=== PATIENT | male | born 1970 | race African-American/Black ===

== ENCOUNTER 2016-07-01 04:59 | Emergency (ER) | payer MEDICAID ==
[~2016-07-01] VITALS: Ht 195.6 cm; Wt 81.8 kg
[2016-07-01] MEDS ORDERED: KETOROLAC 60MG/2ML VIAL IM ONE (06:30)
[2016-07-01 07:38] LABS: BASOPHILS % 1.1 % (0.0-2.0); EOSINOPHILS % 2.2 % (0.0-5.0); HEMATOCRIT. 40.5 % (42.0-52.0); HEMOGLOBIN. 13.7 g/dL (14.0-18.0); LYMPHOCYTES % 27.5 % (20.0-50.0); MEAN CORPUSCULAR HEMOGLOBIN 31.4 pg (28.0-32.0); MEAN CORPUSCULAR HGB CONC 33.7 g/dL (31.0-37.0); MEAN PLATELET VOLUME 6.9 fl (7.4-10.4); MONOCYTES % 11.9 % (2.0-8.0); NEUTROPHILS % 57.3 % (40.0-76.0); PLATELET 193 x1000/uL (130-400); RED BLOOD CELL COUNT 4.35 mill/uL (4.7-6.1); RED CELL DISTRIBUTION WIDTH 13.4 % (11.6-14.6); WHITE BLOOD COUNT 10.4 x1000/uL (4.5-11.0)
[2016-07-01 07:45] LABS: INR 1.1; PROTHROMBIN TIME 10.9 sec
[2016-07-01 07:47] LABS: ALBUMIN 3.3 g/dL (3.4-5.0); ANION GAP 10; CARBON DIOXIDE 28 mEq/L (21-32); CHLORIDE 107 mEq/L (98-107); INDEX HEMOLYSI 1 (1-3); INDEX ICTERIC 1 (1-4); INDEX LIPEMIC 1 (1-3); LIPASE 146 IU/L (73-393); UREA NITROGEN BLOOD 19 mg/dL (7-21)
[2016-07-01 07:50] LABS: ALANINE AMINOTRANSFERASE 12 IU/L (13-61); eGFR > 60 mL/min (>60)
[2016-07-01 09:34] VITALS: BP 99/63
[2016-07-01 09:43] LABS: CLARITY URINE CLOUDY (CLEAR); COLOR URINE YELLOW (YELLOW); GLUCOSE URINE NEGATIVE (NEGATIVE); KETONES URINE NEGATIVE (NEGATIVE); LEUKOCYTE ESTERASE URINE 2+ (NEGATIVE); NITRITE URINE POSITIVE (NEGATIVE); OCCULT BLOOD URINE 1+ (NEGATIVE); PROTEIN URINE NEGATIVE (NEGATIVE); SPECIFIC GRAVITY URINE 1.026 (1.005-1.030)
[2016-07-01 09:58] LABS: *AMPHETAMINES SCREEN URINE NEGATIVE (NEGATIVE); *BARBITURATES SCREEN URINE NEGATIVE (NEGATIVE); *BENZODIAZEPINES SCREEN URINE NEGATIVE (NEGATIVE); *COCAINE SCREEN URINE NEGATIVE (NEGATIVE); AMORPHOUS SEDIMENT URINE 1+ /lpf; BACTERIA URINE 3+; CANNABINOID URINE SCREEN PRESUMTIVE POSITIVE (NEGATIVE); ECSTASY MDMA SCREEN URINE NEGATIVE (NEGATIVE); METHADONE URINE SCREEN NEGATIVE (NEGATIVE); OPIATES URINE SCREEN NEGATIVE (NEGATIVE); PHENCYCLIDINE URINE SCREEN NEGATIVE (NEGATIVE); WBC URINE 15-25 /hpf (0-2)
== END 2016-07-01 10:20 | disposition home or self-care (01) ==
LOC: ER 05:05
DX: M79.602 Pain in left arm (principal); N39.0 Urinary tract infection, site not specified; F17.200 Nicotine dependence, unspecified, uncomplicated
CPT/HCPCS: 36415; 71010; 80053; 80305; 81001; 83690; 85025; 85610; 93005; 96372; 99285; G0482; J1885

== ENCOUNTER 2016-08-08 06:22 | Emergency (ER) | payer MEDICAID ==
[~2016-08-08] VITALS: Ht 195.6 cm; Wt 89.0 kg
[2016-08-08 06:39] VITALS: BP 113/66
== END 2016-08-08 09:01 | disposition left against medical advice (07) ==
LOC: ER 08:44
DX: M79.602 Pain in left arm (principal); Z53.21 Procedure and treatment not carried out due to patient leaving prior to being seen by health care provider

== ENCOUNTER 2016-08-08 09:30 | Emergency (ER) | payer MEDICAID ==
[~2016-08-08] VITALS: Ht 195.6 cm; Wt 89.0 kg
[2016-08-08 10:36] LABS: CLARITY URINE CLOUDY (CLEAR); COLOR URINE YELLOW (YELLOW); GLUCOSE URINE NEGATIVE (NEGATIVE); KETONES URINE NEGATIVE (NEGATIVE); LEUKOCYTE ESTERASE URINE 2+ (NEGATIVE); NITRITE URINE POSITIVE (NEGATIVE); OCCULT BLOOD URINE TRACE (NEGATIVE); PROTEIN URINE NEGATIVE (NEGATIVE); SPECIFIC GRAVITY URINE 1.022 (1.005-1.030); UROBILINOGEN URINE 0.2 E.U./dL (0.2-1.0)
[2016-08-08 11:00] LABS: BASOPHILS % 0.7 % (0.0-2.0); EOSINOPHILS % 1.7 % (0.0-5.0); HEMATOCRIT. 42.9 % (42.0-52.0); HEMOGLOBIN. 14.5 g/dL (14.0-18.0); LYMPHOCYTES % 23.4 % (20.0-50.0); MEAN CORPUSCULAR HEMOGLOBIN 31.4 pg (28.0-32.0); MEAN CORPUSCULAR VOLUME 92.9 fL (80.0-94.0); MEAN PLATELET VOLUME 7.6 fl (7.4-10.4); MONOCYTES % 10.7 % (2.0-8.0); NEUTROPHILS % 63.5 % (40.0-76.0); PLATELET 173 x1000/uL (130-400); RED BLOOD CELL COUNT 4.62 mill/uL (4.7-6.1); RED CELL DISTRIBUTION WIDTH 13.1 % (11.6-14.6)
[2016-08-08 11:12] LABS: CHLORIDE 106 mEq/L (98-107)
[2016-08-08 11:16] LABS: INR 1.1; PROTHROMBIN TIME 11.1 sec
[2016-08-08 11:17] LABS: *AMPHETAMINES SCREEN URINE NEGATIVE (NEGATIVE); *BARBITURATES SCREEN URINE NEGATIVE (NEGATIVE); *BENZODIAZEPINES SCREEN URINE NEGATIVE (NEGATIVE); *COCAINE SCREEN URINE NEGATIVE (NEGATIVE); CANNABINOID URINE SCREEN PRESUMTIVE POSITIVE (NEGATIVE); METHADONE URINE SCREEN NEGATIVE (NEGATIVE); OPIATES URINE SCREEN NEGATIVE (NEGATIVE); PHENCYCLIDINE URINE SCREEN NEGATIVE (NEGATIVE)
[2016-08-08 11:21] LABS: CARBON DIOXIDE 30 mEq/L (21-32)
[2016-08-08 11:26] LABS: TROPONIN I < 0.02 ng/mL (0.00-0.04)
[2016-08-08 11:57] VITALS: BP 125/69
[2016-08-08] MEDS ORDERED: IBUPROFEN 400MG TABLET PO ONE (12:00)
== END 2016-08-08 12:30 | disposition home or self-care (01) ==
LOC: ER 12:25
DX: N39.0 Urinary tract infection, site not specified (principal); M79.1 Myalgia
CPT/HCPCS: 36415; 71010; 80053; 80305; 81001; 84484; 85025; 85610; 93005; 99285